=== PATIENT | female | born 1990 | race Caucasian/White ===

== ENCOUNTER 2023-11-17 03:15 | Inpatient (IN) | payer OTHER, SELFPAY ==
[2023-11-17 03:32] VITALS: BMI 40.8
[2023-11-17] MEDS: TYLENOL 1000 MG PO (03:49)
[2023-11-17] MEDS: BICITRA 30 ML PO (03:49)
[2023-11-17] MEDS: ANCEF 10 IV (03:50)
[2023-11-17 04:08] LABS: Hematocrit 32.1 % (37.0-47.0); Hemoglobin 11.3 g/dL (12.0-16.0); Mean Corp Hgb Conc. 35.2 g/dL (33.0-37.0); Mean Corpuscular Volume 79.7 fL (81.0-99.0); Mean Platelet Volume 12.2 fL (7.4-10.4); Platelet Count 161 10^3/uL (130-400); Red Blood Cell Count 4.03 10^6/uL (4.20-5.40); Red Cell Dist. Width 13.5 % (11.5-14.5); White Blood Cell Count 9.6 10^3/uL (4.8-10.8)
[2023-11-17] MEDS: SENOKOT-S 1 TABLET PO (10:19)
[2023-11-17] MEDS: TORADOL 15 MG IV ×3 (10:19→23:15)
[2023-11-17] MEDS: MYLICON 80 MG PO ×2 (16:20→23:16)
[2023-11-17 19:20] VITALS: BP 120/72
[2023-11-18] MEDS: TORADOL 15 MG IV (05:00)
[2023-11-18] MEDS: MYLICON 80 MG PO ×2 (05:00→11:40)
[2023-11-18] MEDS: TYLENOL 650 MG PO ×3 (05:07→19:33)
--- NOTE | 2023-11-18 08:23 | W.PN.ANS.POP ---
Anesthesia Post Operative
- Anesthesia Post Op Note
Vital Signs Stable-See Nursing Note: Yes
Airway Patent: Yes
Adequate Pain Control: Yes
Change in Mental Status: No
Current Postoperative Nausea & Vomiting: No
Anesthesia Complications: No
General Anesthetic Recall: No
Unplanned Admission: No
Post Op Hydration Adequate: Yes
[2023-11-18 09:04] LABS: Hematocrit 26.4 % (37.0-47.0); Hemoglobin 8.6 g/dL (12.0-16.0); Mean Corp Hgb Conc. 32.6 g/dL (33.0-37.0); Mean Corpuscular Hgb 27.4 pg (27.0-31.0); Mean Corpuscular Volume 84.1 fL (81.0-99.0); Platelet Count 138 10^3/uL (130-400); Red Blood Cell Count 3.14 10^6/uL (4.20-5.40); White Blood Cell Count 10.7 10^3/uL (4.8-10.8)
[2023-11-18] MEDS: TORADOL IV (11:00)
[2023-11-18] MEDS: FEOSOL 325 MG PO ×2 (11:40→19:33)
[2023-11-18] MEDS: MOTRIN 600 MG PO ×2 (11:40→19:33)
[2023-11-18] MEDS: SENOKOT-S 1 TABLET PO (11:40)
[2023-11-19] MEDS: FEOSOL 325 MG PO ×2 (08:28→20:06)
[2023-11-19] MEDS: TYLENOL 650 MG PO ×2 (08:36→20:08)
[2023-11-19] MEDS: MOTRIN 600 MG PO ×2 (08:36→20:06)
[2023-11-20] MEDS: FEOSOL 325 MG PO (07:50)
[2023-11-20] MEDS: SENOKOT-S 1 TABLET PO (07:50)
--- NOTE | 2023-11-20 09:48 | W.DS.TRANS ---
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
-
Discharge Instructions:
Discharge Diagnosis/Procedures primary cs
Instructions:
Stand-Alone Forms: LDRP Delivery
Changes to Home Medications: No
Discharge Medications:
DC Medications w/original date entered in [employer]
ibuprofen 600 mg tablet 600 mg PO [id number] PRN cramps #90 tabs 11/20/23
Home Medication Changes
Pending Results: Yes
[2023-11-20 13:41] LABS: Syphilis/T. pallidum Ab Reflex Negative (Negative)
== END 2023-11-20 14:10 | disposition home or self-care (01) | DRG 788 ==
LOC: LDRP 03:15
PROVIDERS: ADMITTING PHYSICIAN Obstetrics & Gynecology
PROC: 10D00Z1 Extraction of Products of Conception, Low, Open Approach (ICD-10-PCS; 2023-11-17)
DX: O45.90 Premature separation of placenta, unspecified, unspecified trimester (principal); O48.0 Post-term pregnancy; Z3A.40 40 weeks gestation of pregnancy; O34.13 Maternal care for benign tumor of corpus uteri, third trimester; D25.2 Subserosal leiomyoma of uterus; Z37.0 Single live birth; O36.60X0 Maternal care for excessive fetal growth, unspecified trimester, not applicable or unspecified; O76 Abnormality in fetal heart rate and rhythm complicating labor and delivery
CPT/HCPCS: 88307; 85027; 86780; 86850; 86900; 86901

== ENCOUNTER → 2025-09-14 07:53 | Outpatient (REF) | payer OTHER, SELFPAY | LOC: RAD 07:53 | PROVIDERS: ATTENDING PHYSICIAN Obstetrics & Gynecology; FAMILY PHYSICIAN Physician Assistant Medical | DX: Z34.81 Encounter for supervision of other normal pregnancy, first trimester (principal) | CPT/HCPCS: 76801 ==